=== PATIENT | female | born 1935 | race Caucasian/White ===

== ENCOUNTER 2019-06-10 09:14 | Inpatient (IN) ==
--- NOTE | 2019-05-03 21:02 | PAT Medication Instructions ---
Medication Instructions Date of Service May 03, 2019 Home Medications Ocuvite 1 cap PO BID cholecalciferol (vitamin D3) Vitamin D3 400 unit PO QAM focorlepymc-uqklfelbb-xwe C-Mn Glucosamine Chondroitin MaxStr 1 tab PO QPM loratadine 10 mg PO QAM multivitamin 1 tab PO QAM simvastatin 20 mg PO QPM vitamin B complex 1 tab PO QAM vitamin E 800 unit PO QAM Lactobacillus acidophilus 1.5 mg (250 million cell) capsule 100 mmu cells PO QAM ascorbic acid (vitamin C) 500 mg capsule 500 mg PO QAM biotin 5 mg capsule 5 mg PO QAM colesevelam 625 mg tablet 625 mg PO BID PRN duloxetine 60 mg capsule,delayed release 60 mg PO QPM fluticasone furoate 27.5 mcg/actuation nasal spray,suspension 1 sprays INTNAS DAILY PRN levothyroxine 88 mcg tablet 88 mcg PO QPM lorazepam 1 mg tablet 2 mg PO QPM ranitidine 300 mg tablet 300 mg PO BID sertraline 50 mg tablet 50 mg PO QAM anastrozole 1 mg tablet 1 mg PO QPM aspirin 81 mg PO QPM ASK your prescriber and surgeon anastrozole 1 mg tablet 1 mg PO QPM aspirin 81 mg PO QPM STOP taking 2 weeks before surgery (or as soon as possible if surgery is within 2 weeks) Ocuvite 1 cap PO BID vrjqldfesuc-qqusqbowj-bnx C-Mn Glucosamine Chondroitin MaxStr 1 tab PO QPM vitamin E 800 unit PO QAM biotin 5 mg capsule 5 mg PO QAM STOP taking 48 hours before surgery colesevelam 625 mg tablet 625 mg PO BID PRN DO NOT take the morning of surgery cholecalciferol (vitamin D3) Vitamin D3 400 unit PO QAM loratadine 10 mg PO QAM multivitamin 1 tab PO QAM vitamin B complex 1 tab PO QAM Lactobacillus acidophilus 1.5 mg (250 million cell) capsule 100 mmu cells PO QAM ascorbic acid (vitamin C) 500 mg capsule 500 mg PO QAM Take morning of surgery With a small sip of water, OTHERWISE NOTHING TO EAT OR DRINK AFTER MIDNIGHT: fluticasone furoate 27.5 mcg/actuation nasal spray,suspension 1 sprays INTNAS DAILY PRN (if needed) ranitidine 300 mg tablet 300 mg PO BID sertraline 50 mg tablet 50 mg PO QAM Take evening before surgery simvastatin 20 mg PO QPM duloxetine 60 mg capsule,delayed release 60 mg PO QPM fluticasone furoate 27.5 mcg/actuation nasal spray,suspension 1 sprays INTNAS DAILY PRN (if needed) levothyroxine 88 mcg tablet 88 mcg PO QPM lorazepam 1 mg tablet 2 mg PO QPM ranitidine 300 mg tablet 300 mg PO BID Other Notes If you have any questions please call us at [phone] or [phone] or [phone] or [phone]
--- NOTE | 2019-05-04 11:17 | Anesthesiology Consultation ---
Date of Service May 04, 2019 Assessment & Plan (1) Encounter for pre-operative examination: Chart Review Chart Review: Acceptable Risk for Surgery (pending preop testing (labs, CXR)) and Patient seen in Pre Admission Testing Teaching & Discussion Pre-Anesthesia Teaching/Discussion Notes: Instructed NPO after midnight before surgery,except medications with 15 cc of water. Medication instructions provided according to the PAT guidelines. History Surgery Operation Date: 06/10/19 11:30 Proposed Procedures p Right Reverse Total Shoulder Arthroplasty - Donell Vaughan DO Height/Weight Height: 5 ft 2 in Weight: 66.4 kg Allergies Allergy/AdvReac Type Severity Reaction Status Date / Time No Known Allergies Allergy Verified 04/28/19 09:50 Medications Home Medications Medication Instructions Recorded Confirmed Last Taken Ocuvite 1 cap PO BID 06/24/18 04/28/19 07/10/18 18:00 cholecalciferol (vitamin D3) 400 unit PO QAM 06/24/18 04/28/19 07/10/18 08:00 [Vitamin D3] ishtkwmzkoc-yydmwgnnk-hrt C-Mn 1 tab PO QPM 06/24/18 04/28/19 07/10/18 08:00 [Glucosamine Chondroitin MaxStr] loratadine 10 mg PO QAM 06/24/18 04/28/19 07/10/18 08:00 multivitamin 1 tab PO QAM 06/24/18 04/28/19 07/10/18 08:00 simvastatin 20 mg PO QPM 06/24/18 04/28/19 07/10/18 08:00 vitamin B complex 1 tab PO QAM 06/24/18 04/28/19 07/10/18 08:00 vitamin E 800 unit PO QAM 06/24/18 04/28/19 07/10/18 08:00 Lactobacillus acidophilus 1.5 mg 100 mmu cells PO QAM 08/11/18 04/28/19 Unknown (250 million cell) capsule ascorbic acid (vitamin C) 500 mg 500 mg PO QAM cap 08/11/18 04/28/19 Unknown capsule biotin 5 mg capsule 5 mg PO QAM 08/11/18 04/28/19 Unknown colesevelam 625 mg tablet 625 mg PO BID PRN tab 08/11/18 04/28/19 Unknown duloxetine 60 mg capsule,delayed 60 mg PO QPM 08/11/18 04/28/19 Unknown release fluticasone furoate 27.5 1 sprays INTNAS DAILY PRN 08/11/18 04/28/19 Unknown mcg/actuation nasal spray,suspension levothyroxine 88 mcg tablet 88 mcg PO QPM tab 08/11/18 04/28/19 Unknown lorazepam 1 mg tablet 2 mg PO QPM tab 08/11/18 04/28/19 Unknown ranitidine 300 mg tablet 300 mg PO BID tab 08/11/18 04/28/19 Unknown sertraline 50 mg tablet 50 mg PO QAM 08/11/18 04/28/19 Unknown anastrozole 1 mg tablet 1 mg PO QPM 12/02/18 04/28/19 Unknown aspirin 81 mg PO QPM 04/28/19 04/28/19 Unknown Past Medical History Medical History Anxiety GERD (gastroesophageal reflux disease) controlled HX: breast cancer s/p rt mastectomy + radiation History of colitis History of kidney stones History of migraine Hyperlipidemia Hypothyroidism Osteoarthritis Exercise / Class Metabolic Activity III < 4 Walking/Shop/Light housework Past Family History Family History Mother Pancreatic cancer Past Surgical History Surgical History H/O right mastectomy 07/12/18: LMA#4 at [facility] History of appendectomy History of cholecystectomy History of colonoscopy History of hysterectomy PARTIAL History of lumpectomy of both breasts RIGHT 1998/LEFT 2014 History of total shoulder replacement LEFT Hx of foot surgery RIGHT-GREAT TOE Past Anesthesia History No Hx of Anesthesia Complications and No Family Hx of Anesthesia Complications History of PONV No Hx of PONV and No Hx of Motion Sickness Social History Smoking Status: Former smoker Do You Dip or Chew Tobacco: No Smoking End Date: Quit 40 years ago Hx Alcohol Use: Yes Alcohol type: hard liquor alcohol intake frequency: 0-2 drinks per day (1 drink/night ([place])) Hx Substance Use: No substance use type: does not use Review of Systems Reflux controlled. Patient denies chest pain, shortness of breath, cough, wheezing, palpitations. Physical Exam Vital Signs VITALS BP 117/77 P 80 TEMP 98.4 SP02 97%RA RESP 18 PHYSICAL Full neck and c-spine range of motion. Full TMJ range of motion. TMD 3 finger breaths Mallampati Score 2 Dentition: upper/lower partials Lungs: clear throughout to auscultation Cardiac: regular rate and rhythm, I/ systolic murmur Spine: normal Carotid arteries: negative bruit Extremities: no edema Testing Electrocardiogram Date: 06/24/18 NSR at 76bpm. LAD. iRBBB. Voltage criteria for LVH. Cannot rule out septal infarct, age undetermined. Reviewed by Dr. Kline per 07/12/18 anesthesia consult note, EKG unchanged from 2015*
[2019-05-04 11:46] LABS: Basophils # (auto) 0.02 K/uL (0-0.2); Basophils % (auto) 0.4 %; Eosinophils # (auto) 0.02 K/uL (0-0.5); Eosinophils % (auto) 0.4 %; Hematocrit (blood only) 44.9 % (37-47); Hemoglobin 14.8 g/dL (12.0-16.0); Immature Granulocytes # (auto) 0.01 K/uL (0.00-0.02); Immature Granulocytes % (auto) 0.2 %; Lymphocytes % (auto) 9.8 %; Mean Corpuscular Volume 90.9 fL (80-100); Mean Platelet Volume 9.6 fL (7.4-10.4); Monocytes # (auto) 0.56 K/uL (0.11-0.59); Neutrophils % (auto) 78.2 %; Platelet Count 178 K/uL (130-400); RDW Coefficient of Variation 13.3 % (11.5-14.5); Red Blood Count 4.94 M/uL (4.2-5.4); White Blood Count 5.11 K/uL (4.8-10.8)
[2019-05-04 11:56] LABS: Partial Thromboplastin Ratio 0.9; Partial Thromboplastin Time 24.5 Seconds (21.0-31.0); Prothrombin Time 10.3 Seconds (9.0-12.0)
--- NOTE | 2019-05-04 12:03 | XRay Report ---
XR chest Pre-admission PA/Lat CLINICAL HISTORY: Preoperative chest COMPARISON STUDY: No previous studies for comparison. FINDINGS: The lateral view is slightly limited from technical standpoint as the patient's arms obscur e the anterior chest. The heart is normal in size. There is mild scoliosis. There is no failure. Ther e is no focal pulmonary consolidation. There are no pleural effusions. There are surgical clips in th e right axillary region. There is subtle interstitial thickening, finding which is likely chronic.[ IMPRESSION: No active disease in the chest. Electronically signed by: Jd Smart M.D. 05/04/2019 12:02 PM
[2019-05-04 16:39] LABS: BUN Creatinine Ratio 21.8 (10-20); Est GFR (African American) 65.9; Est GFR (Non-African American) 56.8; Potassium 4.9 mmol/L (3.5-5.1)
--- NOTE | 2019-06-10 06:32 | History & Physical Report ---
Date of Service June 10, 2019 Assessment & Plan (1) Rotator cuff arthropathy of right shoulder: We will proceed with a right reverse shoulder arthroplasty. Postoperatively she will be placed in a sling and kept overnight in the hospital for postoperative medical management. She plans to use [facility] for therapy. Present on Admission?: Yes History of Present Illness Chief Complaint: Rotator cuff arthropathy of the right shoulder Primary Care Provider: Tye Felipe is a pleasant 83-year-old female who is been having an 8-month history of increasing right shoulder pain. She denies any trauma. Her shoulder keeps her up at night. X-rays and clinical examination have been diagnostic for rotator cuff arthropathy of the right shoulder. She is failed conservative treatment, including multiple injections. She has elected to proceed with a right reverse shoulder arthroplasty. Allergies Allergy/AdvReac Type Severity Reaction Status Date / Time No Known Allergies Allergy Verified 04/28/19 09:50 Home Medications Home Medications Medication Instructions Recorded Confirmed Type Ocuvite 1 cap PO BID 06/24/18 04/28/19 History cholecalciferol (vitamin D3) 400 unit PO QAM 06/24/18 04/28/19 History [Vitamin D3] vofnumyreak-nashifxdn-inx C-Mn 1 tab PO QPM 06/24/18 04/28/19 History [Glucosamine Chondroitin MaxStr] loratadine 10 mg PO QAM 06/24/18 04/28/19 History multivitamin 1 tab PO QAM 06/24/18 04/28/19 History simvastatin 20 mg PO QPM 06/24/18 04/28/19 History vitamin B complex 1 tab PO QAM 06/24/18 04/28/19 History vitamin E 800 unit PO QAM 06/24/18 04/28/19 History Lactobacillus acidophilus 1.5 mg 100 mmu cells PO QAM 08/11/18 04/28/19 History (250 million cell) capsule ascorbic acid (vitamin C) 500 mg 500 mg PO QAM cap 08/11/18 04/28/19 History capsule biotin 5 mg capsule 5 mg PO QAM 08/11/18 04/28/19 History colesevelam 625 mg tablet 625 mg PO BID PRN tab 08/11/18 04/28/19 History duloxetine 60 mg capsule,delayed 60 mg PO QPM 08/11/18 04/28/19 History release fluticasone furoate 27.5 1 sprays INTNAS DAILY PRN 08/11/18 04/28/19 History mcg/actuation nasal spray,suspension levothyroxine 88 mcg tablet 88 mcg PO QPM tab 08/11/18 04/28/19 History lorazepam 1 mg tablet 2 mg PO QPM tab 08/11/18 04/28/19 History ranitidine 300 mg tablet 300 mg PO BID tab 08/11/18 04/28/19 History sertraline 50 mg tablet 50 mg PO QAM 08/11/18 04/28/19 History anastrozole 1 mg tablet 1 mg PO QPM 12/02/18 04/28/19 History aspirin 81 mg PO QPM 04/28/19 04/28/19 History Past Med/Surg History Medical History Anxiety GERD (gastroesophageal reflux disease) controlled HX: breast cancer s/p rt mastectomy + radiation History of colitis History of kidney stones History of migraine Hyperlipidemia Hypothyroidism Osteoarthritis Surgical History H/O right mastectomy 07/12/18: LMA#[address] 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 Beliefs That Will Affect Care: None marital status: Current Living Situation: Spouse Other Information That Helps Us Care for You: No Feels Safe at Home: Yes Safety Concerns: Feels Safe At This Time Smoking Status: Former smoker Do You Dip or Chew Tobacco: No ; Smoking End Date: Quit 40 years ago ; Second Hand Exposure: No ; Tobacco Cessation Education Requested by Patient: No Hx Alcohol Use: Yes Alcohol type: hard liquor Hx Substance Use: No Review of Systems All systems reviewed & are unremarkable except as noted in HPI & below Physical Exam Constitutional: WD/WN, vitals as above Eyes: PERRL, conjunctivae normal, anicteric sclerae ENMT: external ear and nose normal, oropharynx normal Neck: trachea midline, no thyromegaly Respiratory: normal respiratory effort Cardiovascular: RRR, no murmur, no edema Gastrointestinal (Abdomen): normal bowel sounds, soft, nontender, no hepatosplenomegaly Musculoskeletal: Physical examination of the right shoulder reveals decreased range of motion and significant weakness. There is tenderness palpation along the anterior glenohumeral joint line. The right upper extremity is althea rovascularly intact. Psychiatric: A+Ox3, euthymic affect Results & Data Diagnostic Findings Radiographs of the right shoulder show some signs of osteoarthritis with blunting of the greater tuberosity and some superior migration of the humeral head on the glenoid.
[~2019-06-10 09:14] MED LIST: ACETAMINOPHEN 500 MG TAB PO SCH; BUPIVACAINE 0.5 % 5 MG/1 ML PF 10ML VIAL ONE; CEFAZOLIN 1000MG 1,000 MG/7.5 ML SYR IV SCH; FAMOTIDINE 20 MG TAB PO SCH; GABAPENTIN 300 MG CAP PO SCH; LACTATED RINGER'S 1,000 ML IV SCH; LR 15ML/HR IV SCH; ROPIVACAINE 0.5% HCL/PF 150 MG, BUPIVACAINE 0.5% MPF 30 ML, EPINEPHrine 30MG/30ML (OR U... INSTIL SCH; TRANEXAMIC ACID 1,000 MG **IV Intra-op IV SCH; TRANEXAMIC ACID 1,000 MG **IV Pre-op IV SCH
[2019-06-10] MEDS ORDERED: ATROPINE SULFATE 0.1 MG/ML 10ML SYR IV PRN (09:58)
[2019-06-10] MEDS ORDERED: fentaNYL citrate 100 MCG/2 ML VIAL IV PRN (09:58)
[2019-06-10] MEDS ORDERED: ePHEDrine sulfate 50 MG/ML AMP IV PRN (09:58)
[2019-06-10] MEDS ORDERED: ONDANSETRON INJ 2 MG/ML 2 ML VIAL IV PRN ×2 (09:58→14:24)
[2019-06-10] MEDS ORDERED: ORTHO JOINT ANESTHETIC ONE (10:23)
[2019-06-10] MEDS ORDERED: fentaNYL citrate 100 MCG/2 ML VIAL ONE (10:30)
[2019-06-10] MEDS ORDERED: MIDAZOLAM HCL 1 MG/ML 2ML VIAL ONE (10:30)
[2019-06-10] MEDS ORDERED: ONDANSETRON INJ 2 MG/ML 2 ML VIAL ONE (10:30)
[2019-06-10] MEDS ORDERED: ROCURONIUM BROMIDE 10 MG/ML 5 ML VIAL ONE (10:30)
[2019-06-10] MEDS ORDERED: LIDOCAINE HCL 2% 2 ML VIAL/AMP(20MG/ML) INFIL ONE (10:30)
[2019-06-10] MEDS ORDERED: PROPOFOL IV EMULSION 10 MG/ML 20 ML VIAL IV ONE (10:30)
[2019-06-10] MEDS ORDERED: ePHEDrine sulfate 50 MG/ML SYR ONE (12:02)
--- NOTE | 2019-06-10 12:28 | Operative Report ---
Post Operative Report Pre & Post Diagnosis Operation Date: 06/10/19 12:10 Pre-Op Diagnosis: Rotator cuff arthropathy of the right shoulder Post-Op Diagnosis: Rotator cuff arthropathy of the right shoulder I identified the patient and participated in the time-out.: Yes Procedure Operation Date: 06/10/19 12:10 Actual Procedures p Right Reverse Total Shoulder Arthroplasty(Right) - Donell Vaughan DO Surgeon Donell Vaughan, Cellophaner Donell Turcios PAC Estimated Blood Loss 150 Findings Consistent with Post-Op Diagnosis Specimens Right humeral head Complications none Disposition Disposition: Recovery Room Indications Destinee is a pleasant 84-year-old female who presented my office with complaints of pain and weakness of the right shoulder. X-rays and clinical examination were diagnostic for rotator cuff arthropathy of the right shoulder. After failing conservative treatment, she elected proceed with a reverse right shoulder arthroplasty. Description of Procedure Implants used: I used a [employer] Comprehensive reverse total shoulder arthroplasty system with a size 8 press fit mini humeral stem, a standard humeral tray and a standard humeral bearing, a 25 mm mini baseplate with a 6.5 mm central screw and superior and inferior locking screws, and a size 36 mm eccentric glenosphere. The patient arrived at [facility] for the above procedure. There were seen in the preoperative holding area and the operative extremity was identified and signed. They were given a preoperative antibiotic and an interscalene nerve block. They were taken back to the operating room, laid on table in supine position, and put under general anesthesia. They were then put into the beachchair position. The shoulder was then prepped and draped in sterile fashion. A timeout was done and the patient and the operative extremity was properly identified. A deltopectoral approach was used. Dissection was taken down through the fascia and the deltoid was retracted laterally and the conjoined tendon was retracted medially. The anterior shoulder was exposed. The long head of the biceps tendon was tenodesed to the upper border of the pectoralis major. The subscapularis was then released off the lesser tuberosity with a centimeter of cuff tissue remaining. The inferior capsule was released and the humeral head was dislocated. A canal finding reamer was sent down the center of the humeral canal. Sequential reaming up to a size 8 reamer was done. Off that reamer, a proximal humeral resection guide was placed. The proximal humerus was resected at 135 of inclination and 25 of retroversion. Osteophytes were then removed and the glenoid was exposed. Time was spent doing a complete capsular and labral release. A [employer] signature guide was then attached onto the anterior rim of the glenoid. A 3.2 mm Steinmann pin was then placed in the reverse total shoulder arthroplasty hole. The glenoid baseplate was then reamed. The final size 25 mm mini baseplate was then impacted in the place. A 6.5 mm central screw was then placed followed by superior and inferior locking screws. A 36 mm eccentric glenoid sphere was then impacted into place. Surrounding soft tissues were then injected with 100 cc an orthopedic pain control cocktail. The proximal humerus was then exposed. Sequential broaching of the humerus up to a size 8 broach was done. Off that broach a standard humeral tray was trialed. The shoulder was then reduced, brought through a full range of motion and felt to be stable. The shoulder was then dislocated and the broach was removed. The final size 8 mini press-fit humeral stem was then impacted into place. A standard humeral bearing was then snapped onto a standard humeral tray and the ring-lock mechanism was engaged. The humeral tray was then impacted onto the humeral stem. The shoulder was once again reduced, brought through a full range of motion and felt to be stable. The subscapularis was then tenodesed back to the lesser tuberosity with transosseous FiberWire sutures and side to side sutures with the arm in 45 of external rotation. A dilute betadyne lavage was then done for 3 minutes. The joint was then irrigated with normal saline solution. Hemostasis was obtained. The skin was then closed with 2-0 Vicryl, 3-0V lock suture, and betsy. A soft dressing and a regular arm sling was placed. The patient was then extubated and transferred to a hospital bed. They were taken to the postanesthesia care unit in stable condition. They tolerated the procedure well. I attest to the content of the Intraoperative Record and any orders documented therein. Any exceptions are noted below.
[2019-06-10] MEDS ORDERED: GLYCOPYRROLATE 0.2 MG/ML VIAL ONE (12:36)
[2019-06-10] MEDS ORDERED: NEOSTIGMINE METHYLSULFATE 5 MG/5 ML SYR ONE (12:36)
[2019-06-10] MEDS ORDERED: PHENYLEPHRINE 100MCG/ML 5ML SYR ONE (12:36)
--- NOTE | 2019-06-10 13:33 | XRay Report ---
XR shoulder RT min 2V routine CLINICAL HISTORY: Post shoulder surgery COMPARISON STUDY: Right shoulder CT 05/04/2019. FINDINGS: Status post reverse right total shoulder arthroplasty. The hardware is intact. No fracture or dislocation. Skin betsy are in place. IMPRESSION: Status post reverse right total shoulder arthroplasty. No evidence for hardware complica tions. Electronically signed by: Jj Landers M.D. 06/10/2019 1:32 PM
[2019-06-10] MEDS ORDERED: bisacodyL 10 MG SUPP PR PRN (14:24)
[2019-06-10] MEDS ORDERED: TRAMADOL HCL 50 MG TABLET PO PRN (14:24)
[2019-06-10] MEDS ORDERED: METOCLOPRAMIDE HCL INJ 5 MG/ML 2 ML VIAL IV PRN (14:24)
[2019-06-10] MEDS ORDERED: HYDROmorphone INJ 0.5 MG/0.5 ML SYR IV PRN (14:24)
[2019-06-10] MEDS ORDERED: MAGNESIUM HYDROXIDE SUSP 30 ML UDC PO PRN (14:24)
[2019-06-10] MEDS ORDERED: FLUTICASONE PROPIONATE NA SPR 16 GM BTL PRN (14:24)
[2019-06-10] MEDS ORDERED: NALOXONE HCL 0.4 MG/1 ML VIAL/CARP IV PRN (14:24)
--- NOTE | 2019-06-10 14:37 | Anesthesiology Progress Note ---
Date of Service June 10, 2019 Anesthesia Post Procedure Vital Signs Vital Signs: Temp Pulse Pulse Resp BP Pulse Ox 06/10/19 14:32 80 16 126/77 100 06/10/19 14:00 36.3 C L 85 18 117/68 97 06/10/19 13:50 36.3 C L 77 16 126/61 99 06/10/19 13:40 36.3 C L 79 20 128/71 100 06/10/19 13:30 36.2 C L 81 22 130/63 100 06/10/19 13:20 36.1 C L 82 19 130/72 100 06/10/19 13:10 36.1 C L 85 20 130/59 L 100 06/10/19 13:01 36.1 C L 87 16 135/68 100 06/10/19 10:06 36.4 C L 81 18 156/76 H 99 Transfer of Care Handoff Completed per policy Notes Mental Status: alert / awake / arousable and participated in evaluation Patient Amnestic to Procedure: Yes Nausea / Vomiting: adequately controlled Pain: adequately controlled Airway Patency, RR, SpO2: stable & adequate BP & HR: stable & adequate Hydration State: stable & adequate Anesthetic Complications: no major complications apparent and Pt Satisfied with anesthetic care
[2019-06-10] MEDS: ACETAMINOPHEN 500 MG TAB PO SCH ×2 (14:40→20:43)
[2019-06-10] MEDS ORDERED: SODIUM CHLORIDE 0.9% 1000ML 1,000 ML IV SCH (15:00)
[2019-06-10] MEDS: CEFAZOLIN 2000MG 2,000 MG/15 ML SYR IV SCH (17:20)
[2019-06-10] MEDS: DOCUSATE SODIUM 100 MG CAP PO SCH (20:42)
[2019-06-10] MEDS ORDERED: DULOXETINE HCL 60 MG CAP PO SCH (21:00)
[2019-06-10] MEDS ORDERED: ANASTROZOLE 1 MG TAB PO SCH (21:00)
[2019-06-10] MEDS ORDERED: SENNA 8.6 MG TAB PO SCH (21:00)
[2019-06-10] MEDS ORDERED: LORazepam 2 MG TAB PO SCH (21:00)
[2019-06-10] MEDS ORDERED: ASPIRIN 81 MG ECTAB PO SCH (21:00)
[2019-06-10] MEDS ORDERED: LORazepam 1 MG TAB PO SCH ×2 (21:00)
[2019-06-10] MEDS ORDERED: SIMVASTATIN 20 MG TAB PO SCH (21:00)
[2019-06-10] MEDS ORDERED: LEVOTHYROXINE SODIUM 88 MCG TABLET PO SCH (21:00)
[2019-06-11] MEDS: CEFAZOLIN 2000MG 2,000 MG/15 ML SYR IV SCH (01:56)
[2019-06-11] MEDS: ACETAMINOPHEN 500 MG TAB PO SCH (05:53)
[2019-06-11 06:05] LABS: Hematocrit (blood only) 38.2 % (37-47); Hemoglobin 12.7 g/dL (12.0-16.0); Immature Granulocytes # (auto) 0.05 K/uL (0.00-0.02); Immature Granulocytes % (auto) 0.3 %; Lymphocytes # (auto) 0.82 K/uL (1.2-3.4); Lymphocytes % (auto) 5.5 %; Mean Corpuscular Hemoglobin 30.3 pg (25-34); Mean Corpuscular Hgb Conc 33.2 g/dL (32-36); Mean Corpuscular Volume 91.2 fL (80-100); Mean Platelet Volume 9.4 fL (7.4-10.4); Monocytes # (auto) 0.74 K/uL (0.11-0.59); Monocytes % (auto) 4.9 %; Neutrophils # (auto) 13.38 K/uL (1.4-6.5); Neutrophils % (auto) 89.3 %; Platelet Count 171 K/uL (130-400); RDW Coefficient of Variation 13.5 % (11.5-14.5); RDW Standard Deviation 44.7 fL (36.4-46.3); Red Blood Count 4.19 M/uL (4.2-5.4); White Blood Count 14.99 K/uL (4.8-10.8)
[2019-06-11 06:46] LABS: BUN Creatinine Ratio 18.3 (10-20); Calcium 9.7 mg/dl (8.5-10.1); Creatinine Clr Calc Pharmacy 38.2 ml/min; Est GFR (African American) 61.4; Potassium 4.5 mmol/L (3.5-5.1)
[2019-06-11 07:28] VITALS: BP 127/69; PULSE 82; TEMP 98.1; O2SAT 91
[2019-06-11] MEDS: DOCUSATE SODIUM 100 MG CAP PO SCH (08:39)
[2019-06-11] MEDS ORDERED: SERTRALINE HCL 50 MG TABLET PO SCH (09:00)
[2019-06-11] MEDS ORDERED: CEROVITE ADV FORMULA TAB PO SCH (09:00)
[2019-06-11] MEDS ORDERED: MULTIVITAMIN TAB PO SCH (09:00)
[2019-06-11] MEDS ORDERED: LORATADINE 10 MG TAB PO SCH (09:00)
--- NOTE | 2019-06-11 09:00 | Orthopedic Progress Note ---
Date of Service June 11, 2019 Assessment & Plan (1) Rotator cuff arthropathy of right shoulder: Overall she is doing very well. She is not having much pain in the right shoulder. She will be seen by physical therapy today for ambulation and range of motion exercises. She only wants to take tramadol for pain. She can be discharged home later today. She wants to use [facility] for her therapy. She will follow-up with orthopedics in 2 weeks. Present on Admission?: Yes Subjective Destinee was seen and examined at bedside today. Overall she is doing very well. She is not having any pain in the right shoulder. She is happy with her progress to this point. She has no complaints. Physical Exam Musculoskeletal: On physical examination of the right shoulder, the dressing is clean and dry. Her radial, median, and ulnar nerves are checked and intact. Her axillary nerve is not checked yet. Results & Data Vital Signs (Past 12 Hours) Vital Signs Temp Pulse Resp BP Pulse Ox 06/11/19 07:27 36.7 C 82 18 127/69 91 06/11/19 03:26 36.6 C 76 16 136/67 94 06/10/19 23:09 36.7 C 74 16 106/65 92 Laboratory Results H & H 05/04/19 06/11/19 Range/Units 11:32 05:38 Hgb 14.8 12.7 (12.0-16.0) g/dL Hct 44.9 38.2 (37-47) % Coagulation 05/04/19 Range/Units 11:32 INR 1.0 (0.9-1.1) Diagnostic Findings Postoperative x-rays of the right shoulder show the prosthesis to be in anatomic alignment without any evidence of fracture, dislocation, or loosening. PG Care Time/CCT Total # of Minutes Spent Total Time Spent with Patient: Total time spent is greater than 50% in coordination of care (as documented) at patient's floor/unit and/or counseling patient:
--- NOTE | 2019-06-11 09:01 | Discharge Summary ---
Date of Service June 11, 2019 Admission HPI Per Admitting Provider Destinee is a pleasant 83-year-old female who is been having an 8-month history of increasing right shoulder pain. She denies any trauma. Her shoulder keeps her up at night. X-rays and clinical examination have been diagnostic for rotator cuff arthropathy of the right shoulder. She is failed conservative treatment, including multiple injections. She has elected to proceed with a right reverse shoulder arthroplasty. Principal Diagnosis Right total shoulder arthroplasty Discharge Data Allergies Allergy/AdvReac Type Severity Reaction Status Date / Time No Known Allergies Allergy Verified 06/10/19 10:00 Consultations 06/10/19 14:24 Consult Case Management - Discharge Planning Routine Procedures Performed Operation Date: 06/10/19 12:10 Actual Procedures p Right Reverse Total Shoulder Arthroplasty(Right) - Donell Vaughan DO Ordered Studies 06/10/19 05:00 US - OR guided needle placemen Routine Hospital Course (1) Rotator cuff arthropathy of right shoulder: On June 10, 2019 Destinee arrived at [facility] and underwent a right reverse shoulder arthroplasty without complication. She had a' general anesthetic and a right interscalene nerve block. Postoperatively she was placed in an arm sling and discharged to general orthopedic floors. Her hospital course is uneventful. On postop day #1 her H&H was stable and her pain was well controlled. She was able to participate well with physical therapy doing ambulation and range of motion exercises. She was then discharged home. She will get physical therapy. She will follow-up with orthopedics in 2 weeks. Total Time Total Time Spent Total Time Spent (In Minutes): 20 Discharge Plan Discharge Items Patient Disposition: Home - Home Health Services Reason For Visit: Degenerative Joint Disease Right Shoulder Discharge Diagnosis: Right reverse shoulder arthroplasty Activity: As commented below Non-emergency contact: Surgeon Call non-emergency contact if: your wound has increased redness and your wound has increased drainage Follow-up/Referrals: Tye Barry [Primary Care Provider] - Diet: Regular Addtl Attending Provider Instructions: Activity and Therapy Recommendations: * If you are using [facility] then therapy will be provided at your home until they feel you have accomplished all of your goals. * If you are using [facility] then Physical Therapy will be provided until they feel you are ready to start Outpatient Physical Therapy. * If you are not using home therapy then Outpatient Physical Therapy should start about 3-5 days from your day of surgery. Therapy will last about 8-12 weeks * Wear your sling for 3 weeks, unless otherwise instructed. You may remove your sling to shower and to dress, but otherwise, you should be in your sling at all times, including while sleeping * The shoulder replacement is very stable and you can use your hand while in the sling * You were shown a series of exercises in the hospital. Do these exercises daily including the exercises you were shown in physical therapy. Medications: * Narcotic You will likely be sent home from the hospital with a prescription for the narcotic pain medication that worked best throughout your stay. * Other medications may be prescribed for specific circumstances. If you have any questions, please call the office at . * Resume previous home medications unless otherwise instructed Dressing Care: Leave the plastic dressing in place for 5 days. After 5 days you may remove the plastic dressing. If the incision is not draining then you may leave the betsy open to air. If there is a little bit of drainage or if the betsy are getting stuck on your clothing then cover the incision with a dry dressing. The betsy will be removed at your 2 week follow-up appointment. Showering: You may shower with the plastic dressing in place. Let the shower spray hit the other shoulder. You can pat the plastic dry. If the dressing becomes wet underneath the plastic then simply remove the dressing. Keep the incision dry until you are 5 days out from the day of surgery. At that time you can shower with the betsy exposed. Let the soapy shower water run over the betsy and pat them dry. Do not scrub or soak the incision. Things To Watch For: * Drainage from the incision site that occurs more than one week after your surgery. * Increased redness at the incision site. * Fever above 102 degrees Fahrenheit. * Unusual chest pain or shortness of breath. * Call [facility] at with any of the above problems Follow-Up Visit: Follow-up with Dr. Vaughan 2-3 weeks after your day of surgery. An appointment was probably scheduled when you signed-up for surgery in the office. If you have any questions call Office Instructions: More detailed instructions as well as Frequently Asked Questions were provided in a folder by our office when you signed-up for surgery. Please review these instructions when you get home. If you have any further questions or concerns, please feel free to call the office at [phone] Pending Studies at Discharge: No Stand-Alone Forms: My [facility] Medications and DC Order Prescriptions: Continued ascorbic acid (vitamin C) 500 mg capsule 500 mg PO QAM RF: 0 duloxetine 60 mg capsule,delayed release(DR/EC) 60 mg PO QPM RF: 0 colesevelam [WelChol] 625 mg tablet 625 mg PO BID PRN (Reason: diarrhea ) RF: 0 fluticasone furoate [Flonase Sensimist] 27.5 mcg/actuation spray,suspension 1 sprays INTNAS DAILY PRN (Reason: allergy symptoms) RF: 0 Lactobacillus acidophilus [Probiotic Acidophilus] 1.5 mg (250 million cell) capsule 100 mmu cells PO QAM RF: 0 biotin 5 mg capsule 5 mg PO QAM RF: 0 sertraline 50 mg tablet 50 mg PO QAM RF: 0 anastrozole [Arimidex] 1 mg tablet 1 mg PO QPM RF: 0 vitamin B complex Tablet 1 tab PO QAM RF: 0 cholecalciferol (vitamin D3) [Vitamin D3] 400 unit Tablet 400 unit PO QAM RF: 0 [id number] C-Mn [Glucosamine Chondroitin MaxStr] 500-400 mg Capsule 1 tab PO QPM RF: 0 Ocuvite 672-17-1-150 [id number]-mg Capsule 1 cap PO BID RF: 0 multivitamin Tablet 1 tab PO QAM RF: 0 simvastatin 20 mg Tablet 20 mg PO QPM RF: 0 loratadine 10 mg Capsule 10 mg PO QAM RF: 0 vitamin E 400 unit Capsule 800 unit PO QAM RF: 0 ranitidine HCl 300 mg tablet 300 mg PO BID RF: 0 lorazepam 1 mg tablet 2 mg PO QPM RF: 0 levothyroxine 88 mcg tablet 88 mcg PO QPM RF: 0 aspirin 81 mg Tablet,Delayed Release (Dr/Ec) 81 mg PO QPM RF: 0 Discharge Orders: Discharge Order (Routine); Ordered 06/11/19 Ordered By: Donell Vaughan Admission Data Admit Date/Time: 06/10/19 13:00 Attending Provider: Donell Vaughan Admit Provider: Donell Vaughan Primary Care Provider: Tye Barry
--- NOTE | 2019-06-11 09:33 | Anesthesiology Progress Note ---
Date of Service June 11, 2019 Anesthesia Post Procedure Vital Signs Vital Signs: Temp Pulse Pulse Resp BP Pulse Ox 06/11/19 09:19 36.7 C 82 18 127/69 91 06/11/19 07:27 36.7 C 82 18 127/69 91 06/11/19 03:26 36.6 C 76 16 136/67 94 06/10/19 23:09 36.7 C 74 16 106/65 92 06/10/19 17:02 36.3 C L 92 H 16 106/64 94 06/10/19 16:04 36.3 C L 81 16 108/64 93 06/10/19 14:55 36.3 C L 79 16 102/62 93 06/10/19 14:38 97 06/10/19 14:32 80 16 126/77 100 06/10/19 14:00 36.3 C L 85 18 117/68 97 06/10/19 13:50 36.3 C L 77 16 126/61 99 06/10/19 13:40 36.3 C L 79 20 128/71 100 06/10/19 13:30 36.2 C L 81 22 130/63 100 06/10/19 13:20 36.1 C L 82 19 130/72 100 06/10/19 13:10 36.1 C L 85 20 130/59 L 100 06/10/19 13:01 36.1 C L 87 16 135/68 100 06/10/19 10:06 36.4 C L 81 18 156/76 H 99 Pain Intensity Right Shoulder: Pain Intensity: 0 Notes Mental Status: alert / awake / arousable and participated in evaluation Patient Amnestic to Procedure: Yes Nausea / Vomiting: adequately controlled Pain: adequately controlled Airway Patency, RR, SpO2: stable & adequate BP & HR: stable & adequate Hydration State: stable & adequate Anesthetic Complications: no major complications apparent
== END 2019-06-11 11:04 | disposition home or self-care (01) | DRG 483 ==
LOC: ASU 09:14 → 3E 13:00